=== PATIENT | male | born 1995 | race African-American/Black ===

== ENCOUNTER 2020-01-16 12:30 | Emergency (ER) | payer OTHER, SELFPAY ==
[2020-01-16 12:33] VITALS: BP 136/84; PULSE 90; RESP 16; TEMP 37.8; O2SAT 100
--- NOTE | 2020-01-16 12:53 | ED.URI ---
HPI - URI/Sore Throat General Chief Complaint: Upper Respiratory Infection Stated Complaint: CHILLS/HEADACHE Time Seen by Provider: 01/16/20 12:32 Source: patient Mode of arrival: ambulatory Limitations: no limitations History of Present Illness HPI Narrative: 24-year-old male presents to urgent care with complaints of headache, bodyaches, chills, low-grade fevers, dry cough and right ear pain since yesterday. Patient has been taking [id number] Excedrin with minimal relief. Patient denies sick contacts. Patient denies recent travel. Patient is a non-smoker. Patient denies nasal congestion, runny nose, sore throat, shortness of breath, wheezing, nausea, vomiting or diarrhea MD elicited complaint: fever and cough Onset (ago): day(s) (1) Consistency: constant Able to tolerate fluids by mouth: Yes Exacerbating factors: nothing Related Data Allergies Allergy/AdvReac Type Severity Reaction Status Date / Time No Known Allergies Allergy Unverified 08/04/18 10:49 Review of Systems Review of Systems: All systems reviewed & are unremarkable except as noted in HPI and below Constitutional: Constitutional: Reports chills, Denies fatigue, Reports fever(s) and Denies weakness ENT: Denies dysphagia, Denies vertigo, Denies dizziness, Denies epistaxis, Denies nasal congestion and Denies sore throat Cardiovascular: Cardiovascular: Denies chest pain, Denies rapid heart rate, Denies radiating jaw, neck or arm pain and Denies slow heart rate Respiratory: Respiratory: Denies chest congestion, Reports cough, Denies dyspnea and Denies wheezing Gastrointestinal: Gastrointestinal: Denies abdominal pain, Denies diarrhea, Denies nausea and Denies vomiting Musculoskeletal: Musculoskeletal: Denies arthralgias and Denies joint swelling Neurologic: Denies dizziness, Denies syncope, Denies headache(s) and Denies weakness [facility] Past Medical History Medical History (Updated 01/16/20 @ 13:08 by Kiya Pitt APN) Right hand fracture Social History Social History (Updated 01/16/20 @ 12:54 by Kiya Pitt APN) Smoking status: Never smoker Exam Const: General: healthy appearing, no acute distress and alert Orientation/consciousness: patient oriented x3 Limitations: no limitations HENMT: Ears: external ears normal and TM abnormal dull on the right and erythematous on the right General nose exam: Normal nares present Face and sinus: sinuses nontender Mouth: Yes Normal oral and palatal mucosa present and Yes moist mucous membranes Teeth and gingiva: dentition normal Neck: Neck: normal visual inspection and no lymphadenopathy Resp: Effort & Inspection: normal respiratory effort and not tachypneic Auscultation: clear to auscultation bilaterally, no wheezes and lung sounds not diminished Cardio: Rate: regular rate Rhythm: regular rhythm Heart sounds: no murmurs Skin: General skin exam: normal color Rashes: no rashes Neuro: General: patient oriented x3, moves all extremities and no meningeal signs Extrem: General: normal to inspection Psych: Appearance: grossly normal Mental Status: mental status grossly normal Affect: normal affect Attitude: cooperative Course Vital Signs Vital signs: Vital Signs Temperature 37.8 C H 01/16/20 12:33 Pulse Rate 90 01/16/20 12:33 Respiratory Rate 16 01/16/20 12:33 Blood Pressure 136/84 01/16/20 12:33 Pulse Oximetry 100 01/16/20 12:33 Temperature 37.8 C H 01/16/20 12:33 Pulse Rate 90 01/16/20 12:33 Respiratory Rate 16 01/16/20 12:33 Blood Pressure 136/84 01/16/20 12:33 Pulse Oximetry 100 01/16/20 12:33 MDM - URI/Sore Throat MDM Narrative Medical decision making narrative: Negative strep negative influenza discussed with patient. Patient agrees to take medications as prescribed. Patient agrees to follow-up with primary care provider if symptoms do not improve Differential Diagnosis Differential diagnosis: Likely upper respiratory infection, sin
== END 2020-01-16 13:10 | disposition home or self-care (01) ==
PROVIDERS: Emergency Provider Nurse Practitioner Family
DX: H66.91 Otitis media, unspecified, right ear (principal)
CPT/HCPCS: 87081; 87804; 87880; 99213; G0463

== ENCOUNTER 2020-06-07 13:57 | Emergency (ER) | payer OTHER, SELFPAY ==
[2020-06-07 14:11] VITALS: BP 135/76; PULSE 53; RESP 16; TEMP 36.4; O2SAT 100
--- NOTE | 2020-06-07 14:28 | ED.MALEGU ---
HPI - Male Genitourinary General Chief complaint: Urogenital-Male Stated complaint: POS STD Source: patient Mode of arrival: ambulatory Limitations: no limitations History of Present Illness HPI Narrative: 24-year-old male presents to urgent care for complaints of possible STD exposure. Patient reports that his girlfriend notified him today that she possibly tested positive for syphilis. Patient denies testicular pain, testicular swelling, urinary symptoms, penile discharge, ulcerations, rash, fever, body aches, chills, nausea, vomiting or diarrhea. MD Complaint: possible STD exposure Related Data Sexually active: Yes Allergies Allergy/AdvReac Type Severity Reaction Status Date / Time No Known Allergies Allergy Verified 06/07/20 14:07 Review of Systems Review of Systems: All systems reviewed & are unremarkable except as noted in HPI and below Constitutional: Constitutional: Denies anorexia, Denies body ache(s), Denies chills, Denies fatigue and Denies fever(s) Cardiovascular: Cardiovascular: Denies chest pain, Denies chest pain at rest, Denies chest pain with activity, Denies diaphoresis, Denies rapid heart rate and Denies irregular heart rhythm Respiratory: Respiratory: Denies cough, Denies hemoptysis and Denies dyspnea Gastrointestinal: Gastrointestinal: Denies diarrhea, Denies nausea and Denies vomiting Genitourinary: Genitourinary: Denies genital pain, Denies dysuria, Denies flank pain, Denies nocturia, Denies penile discharge, Denies scrotal swelling, Denies testicular mass, Denies testicular pain, Denies urinary frequency, Denies urinary incontinence and Denies urinary urgency Comments: Possible STD exposure Integumentary/Breasts: Skin/Breast: Denies rash, Denies skin ulcer and Denies wounds PMFSH Past Medical History Medical History Right hand fracture Social History Social History Smoking status: Never smoker Exam Const: General: cooperative, healthy appearing, comfortable, no acute distress, well developed, alert, awake and Physically active Orientation/consciousness: patient oriented x3 Limitations: no limitations Eyes: General: appearance normal, both eyes and all related structures Resp: Effort & Inspection: normal respiratory effort, able to speak in complete sentences, no audible wheezes, no cough, not labored and no nasal flaring Cardio: Rate: regular rate Rhythm: regular rhythm Heart sounds: no murmurs GI: Inspection: normal to inspection and no edema GI Palp: No abdominal tenderness, Yes Soft to palpation, No Tenderness to palpation present (GI), No Guarding due to palpation present (GI), No Rigid due to palpation and No Rebound tenderness present : General: Yes bladder normal to palpation and Yes no CVA tenderness Penis: Yes other (exam deferred ) Back/Spine/Pelvis: Back: no CVA tenderness Skin: General skin exam: normal color, no rashes or lesions noted and turgor normal Extrem: General: normal to inspection Psych: Appearance: grossly normal and well kempt Mental Status: mental status grossly normal Speech and movement: Normal speech and movement present and Clear speech present Affect: normal affect Attitude: cooperative Thought process: Normal thought process present Thought content: Yes Normal thought content present Course Vital Signs Vital signs: Vital Signs Temperature 36.4 C L 06/07/20 14:11 Pulse Rate 53 L 06/07/20 14:11 Respiratory Rate 16 06/07/20 14:11 Blood Pressure 135/76 06/07/20 14:11 Pulse Oximetry 100 06/07/20 14:11 Temperature 36.4 C L 06/07/20 14:11 Pulse Rate 53 L 06/07/20 14:11 Respiratory Rate 16 06/07/20 14:11 Blood Pressure 135/76 06/07/20 14:11 Pulse Oximetry 100 06/07/20 14:11 MDM - Male Genitourinary MDM Narrative Medical decision making narrative: Patient refuses penicillin injection and states th
== END 2020-06-07 14:44 | disposition home or self-care (01) ==
PROVIDERS: Emergency Provider Nurse Practitioner Family
DX: Z20.2 Contact with and (suspected) exposure to infections with a predominantly sexual mode of transmission (principal); Z72.51 High risk heterosexual behavior
CPT/HCPCS: 81003; 87491; 87591; 87661; 99213; G0463